=== PATIENT | male | born 1960 | race Caucasian/White ===

== ENCOUNTER → 2016-09-21 | Outpatient (CLI) | payer BC ==
[2016-09-21 09:23] LABS: Basophils % (A) 1 %; CHCM 33.6; Eosinophils # (A) 0.1 k/uL (0-0.7); Eosinophils % (A) 2 %; HCT 46.6 % (39.0-53.0); HDW 2.29; HGB 15.5 gm/dL (13.0-17.5); Luc # (Auto) 0.13; Luc % (Auto) 3; Lymphocytes # (A) 2.2 k/uL (1.0-4.8); Lymphocytes % (A) 42 %; MCH 32.8 pg (25.0-35.0); MCHC 33.3 g/dL (31.0-37.0); MCV 98.6 fL (80.0-100.0); Mean Platelet Volume 8.5; Monocytes # (A) 0.3 k/uL (0-1.0); Monocytes % (A) 6 %; Neutrophils # (A) 2.4 k/uL (1.3-7.7); Neutrophils % (A) 47 %; RBC 4.73 m/uL (4.30-5.90); RDW 11.7 % (11.5-15.5); WBC 5.2 k/uL (3.8-10.6); WBC (Perox) 4.66
[2016-09-21 09:41] LABS: ALT 52 U/L (21-72); AST 36 U/L (17-59); Alkaline Phosphatase 45 U/L (38-126); Anion Gap 12 mmol/L; Blood Urea Nitrogen 17 mg/dL (9-20); Calcium 9.4 mg/dL (8.4-10.2); Carbon Dioxide 23 mmol/L (22-30); Chloride 105 mmol/L (98-107); Cholesterol 136 mg/dL (<200); Creatine Kinase 286 U/L (55-170); Glucose 106 mg/dL (74-99); HDL Cholesterol 46 mg/dL (40-60); Non-African American GFR(MDRD) >60 (>60 ml/min/1.73 sqM); Potassium 4.6 mmol/L (3.5-5.1); Sodium 140 mmol/L (137-145); Total Bilirubin 1.1 mg/dL (0.2-1.3); Total Protein 7.3 g/dL (6.3-8.2); Triglycerides 111 mg/dL (<150)
== END ==
LOC: LABWHC1 09:00
PROVIDERS: ATTEND Family Medicine
DX: E78.5 Hyperlipidemia, unspecified (principal)
CPT/HCPCS: 36415; 80053; 80061; 82550; 84443; 85025

== ENCOUNTER → 2017-09-27 | Outpatient (CLI) | payer BC ==
[2017-09-27 08:03] LABS: Basophils # (A) 0.1 k/uL (0-0.2); Basophils % (A) 1 %; Eosinophils # (A) 0.2 k/uL (0-0.7); Eosinophils % (A) 4 %; HCT 44.7 % (39.0-53.0); HGB 14.8 gm/dL (13.0-17.5); Lymphocytes # (A) 2.3 k/uL (1.0-4.8); Lymphocytes % (A) 35 %; MCH 31.5 pg (25.0-35.0); MCHC 33.2 g/dL (31.0-37.0); MCV 94.9 fL (80.0-100.0); Mean Platelet Volume 7.9; Monocytes # (A) 0.4 k/uL (0-1.0); Monocytes % (A) 6 %; Neutrophils # (A) 3.4 k/uL (1.3-7.7); Neutrophils % (A) 53 %; Platelet Count 217 k/uL (150-450); RBC 4.71 m/uL (4.30-5.90); RDW 11.8 % (11.5-15.5); WBC 6.5 k/uL (3.8-10.6)
[2017-09-27 11:36] LABS: ALT 55 U/L (21-72); AST 33 U/L (17-59); Albumin 3.9 g/dL (3.5-5.0); Alkaline Phosphatase 52 U/L (38-126); Anion Gap 8 mmol/L; Blood Urea Nitrogen 19 mg/dL (9-20); Calcium 9.6 mg/dL (8.4-10.2); Carbon Dioxide 28 mmol/L (22-30); Chloride 105 mmol/L (98-107); Cholesterol 178 mg/dL (<200); Glucose 132 mg/dL (74-99); HDL Cholesterol 35 mg/dL (40-60); LDL Cholesterol,Calculated 106 mg/dL (0-99); Potassium 4.7 mmol/L (3.5-5.1); Sodium 141 mmol/L (137-145); Total Bilirubin 0.9 mg/dL (0.2-1.3); Total Protein 6.7 g/dL (6.3-8.2); Triglycerides 187 mg/dL (<150)
[2017-09-27 12:00] LABS: Prostate Specific Antigen 0.89 ng/mL (0.00-4.00)
[2017-09-27 17:27] LABS: Hepatitis A Antibody IgM Non-Reactive (Non-Reactive); Hepatitis B Core IgM Non-Reactive (Non-Reactive)
== END | disposition home or self-care (01) ==
LOC: LABWHC1 07:01
PROVIDERS: ATTEND Family Medicine
DX: Z00.00 Encounter for general adult medical examination without abnormal findings (principal); Z12.5 Encounter for screening for malignant neoplasm of prostate; Z11.59 Encounter for screening for other viral diseases
CPT/HCPCS: 36415; 80053; 80061; 80074; 84153; 84443; 85025

== ENCOUNTER → 2019-06-14 | Outpatient (CLI) | payer BC ==
[2019-06-14 10:22] LABS: Basophils % (A) 1 %; Eosinophils # (A) 0.1 k/uL (0-0.7); Eosinophils % (A) 3 %; HCT 43.9 % (39.0-53.0); HGB 14.9 gm/dL (13.0-17.5); Lymphocytes # (A) 2.1 k/uL (1.0-4.8); Lymphocytes % (A) 41 %; MCH 32.8 pg (25.0-35.0); MCV 96.6 fL (80.0-100.0); Monocytes # (A) 0.3 k/uL (0-1.0); Monocytes % (A) 6 %; Neutrophils # (A) 2.5 k/uL (1.3-7.7); Neutrophils % (A) 47 %; Platelet Count 189 k/uL (150-450); RBC 4.54 m/uL (4.30-5.90); RDW 11.4 % (11.5-15.5); WBC 5.2 k/uL (3.8-10.6)
[2019-06-14 16:20] LABS: African American GFR (CKD) 114.9 (60.0-200.0); Albumin 4.4 g/dL (3.80-4.90); Albumin/Globulin Ratio 2.44 (1.60-3.17); Anion Gap 7.2 mmol/L (4.00-12.00); BUN/Creat Ratio 23.75 Ratio (12.00-20.00); Calcium 9.3 mg/dL (8.7-10.3); Carbon Dioxide 24.8 mmol/L (21.6-31.8); Chol/HDL Ratio 4.68; Globulin 1.8 g/dL (1.6-3.3); LDL Cholesterol,Calculated 111.8 mg/dL (0.0-131.0); Non-African American GFR(CKD) 99.2 (60.0-200.0); Potassium 4.2 mmol/L (3.5-5.5); Total Bilirubin 1.1 mg/dL (0.2-1.2); Total Protein 6.2 g/dL (6.2-8.2); VLDL Calculation 28.2 mg/dL (5.00-40.00)
== END | disposition home or self-care (01) ==
LOC: LABWHC1 09:02
PROVIDERS: ATTEND Family Medicine
DX: Z00.00 Encounter for general adult medical examination without abnormal findings (principal); Z12.5 Encounter for screening for malignant neoplasm of prostate
CPT/HCPCS: 36415; 80053; 80061; 84153; 84443; 85025

== ENCOUNTER → 2021-08-27 | Outpatient (CLI) | payer BC ==
[2021-08-27 14:40] LABS: Basophils # (A) 0.06 X 10*3/uL (0.00-0.10); Basophils % (A) 0.9 %; Eosinophils # (A) 0.12 X 10*3/uL (0.04-0.35); Eosinophils % (A) 1.7 %; HCT 46.3 % (39.6-50.0); HGB 15.6 g/dL (13.0-17.0); Immature Grans, Automated 0.4 %; Lymphocytes % (A) 36.4 %; MCH 32.1 pg (27.0-32.0); MCHC 33.7 g/dL (32.0-37.0); MCV 95.3 fL (80.0-97.0); Mean Platelet Volume 11.4 fL (9.5-12.2); Monocytes # (A) 0.51 X 10*3/uL (0.20-1.00); Monocytes % (A) 7.4 %; NRBC Per 100 WBC 0 /100 WBCS (0.0-0.0); Neutrophils # (A) 3.65 X 10*3/uL (1.80-7.70); Neutrophils % (A) 53.2 %; Platelet Count 194 X 10*3/uL (140-440); RBC 4.86 X 10*6/uL (4.40-5.60); RDW 11.2 % (11.5-14.5); WBC 6.87 X 10*3/uL (4.50-10.00)
[2021-08-27 15:27] LABS: ALT 78 U/L (10-49); AST 38 U/L (14-35); African American GFR (CKD) 106.4 (60.0-200.0); Albumin 4.6 g/dL (3.8-4.9); Albumin/Globulin Ratio 1.89 (1.60-3.17); Alkaline Phosphatase 47 U/L (41-126); BUN/Creat Ratio 13.39 Ratio (12.00-20.00); Blood Urea Nitrogen 12.2 mg/dL (9.0-27.0); Calcium 9.4 mg/dL (8.7-10.3); Carbon Dioxide 22.9 mmol/L (20.0-27.5); Chloride 101 mmol/L (96-109); Chol/HDL Ratio 4.89 Ratio; Globulin 2.4 g/dL (1.6-3.3); Glucose 173 mg/dL (70-110); LDL Cholesterol,Calculated 126.7 mg/dL (0.0-131.0); Non-African American GFR(CKD) 91.8 (60.0-200.0); Potassium 4.7 mmol/L (3.5-5.5); Sodium 136 mmol/L (135-145)
[2021-08-27 18:17] LABS: Urine Creatinine 91.7 mg/dL (39.0-259.0)
== END | disposition home or self-care (01) ==
LOC: LABWHC1 08:39
PROVIDERS: ATTEND Family Medicine
DX: Z00.00 Encounter for general adult medical examination without abnormal findings (principal); Z12.5 Encounter for screening for malignant neoplasm of prostate; E11.9 Type 2 diabetes mellitus without complications
CPT/HCPCS: 36415; 80053; 80061; 82043; 82570; 84153; 84443; 85025

== ENCOUNTER → 2022-12-07 | Outpatient (CLI) | payer BC ==
[2022-12-07 15:36] LABS: Basophils # (A) 0.06 X 10*3/uL (0.00-0.10); Basophils % (A) 1.1 %; Eosinophils # (A) 0.21 X 10*3/uL (0.04-0.35); HCT 46.6 % (39.6-50.0); HGB 14.8 g/dL (13.0-17.0); Immature Grans, Automated 0.2 %; Lymphocytes # (A) 2.16 X 10*3/uL (0.90-5.00); MCHC 31.8 g/dL (32.0-37.0); MCV 97.7 fL (80.0-97.0); Mean Platelet Volume 11.2 fL (9.5-12.2); Monocytes # (A) 0.41 X 10*3/uL (0.20-1.00); Monocytes % (A) 7.8 %; NRBC Per 100 WBC 0 /100 WBCS (0.0-0.0); Neutrophils # (A) 2.42 X 10*3/uL (1.80-7.70); Neutrophils % (A) 45.9 %; Platelet Count 177 X 10*3/uL (140-440); RBC 4.77 X 10*6/uL (4.40-5.60); RDW 11.9 % (11.5-14.5); WBC 5.27 X 10*3/uL (4.50-10.00)
[2022-12-07 15:52] LABS: ALT 36 U/L (10-49); AST 24 U/L (14-35); African American GFR (CKD) 112.5 (60.0-200.0); Albumin 4.5 g/dL (3.8-4.9); Albumin/Globulin Ratio 2.25 (1.60-3.17); Alkaline Phosphatase 59 U/L (41-126); BUN/Creat Ratio 20.38 Ratio (12.00-20.00); Blood Urea Nitrogen 16.3 mg/dL (9.0-27.0); Calcium 9.4 mg/dL (8.7-10.3); Carbon Dioxide 25.7 mmol/L (20.0-27.5); Chloride 104 mmol/L (96-109); Chol/HDL Ratio 3.87 Ratio; Glucose 150 mg/dL (70-110); LDL Cholesterol,Calculated 109.8 mg/dL (0.0-131.0); Non-African American GFR(CKD) 97.1 (60.0-200.0); Potassium 4.7 mmol/L (3.5-5.5); Sodium 139 mmol/L (135-145); Total Protein 6.5 g/dL (6.2-8.2)
[2022-12-07 19:56] LABS: Microalbumin Creatinine Ratio <30 mg/g Creat (0-30); Urine Creatinine 90.8 mg/dL (39.0-259.0)
== END | disposition home or self-care (01) ==
LOC: LABWHC1 08:37
PROVIDERS: ATTEND Nurse Practitioner Adult Health
DX: Z00.00 Encounter for general adult medical examination without abnormal findings (principal); Z12.5 Encounter for screening for malignant neoplasm of prostate; E11.9 Type 2 diabetes mellitus without complications
CPT/HCPCS: 36415; 80053; 80061; 82043; 82570; 84153; 84439; 84443; 85025

== ENCOUNTER → 2023-11-11 | Outpatient (CLI) | payer BC ==
[2023-11-11 16:21] LABS: Chol/HDL Ratio 3.73 Ratio; LDL Cholesterol,Calculated 106.6 mg/dL (0.0-131.0)
[2023-11-11 16:22] LABS: ALT 58 U/L (10-49); AST 32 U/L (14-35); Albumin 4.7 g/dL (3.8-4.9); Albumin/Globulin Ratio 2.04 Ratio (1.60-3.17); Alkaline Phosphatase 65 U/L (41-126); BUN/Creat Ratio 19.22 Ratio (12.00-20.00); Blood Urea Nitrogen 17.3 mg/dL (9.0-27.0); Calcium 9.7 mg/dL (8.7-10.3); Carbon Dioxide 23.8 mmol/L (21.6-31.8); Chloride 105 mmol/L (96-109); Globulin 2.3 g/dL (1.6-3.3); Glucose 135 mg/dL (70-110); Potassium 5.3 mmol/L (3.5-5.5); Prostate Specific Antigen 0.54 ng/mL (0.000-4.500); Sodium 140 mmol/L (135-145); Total Bilirubin 0.6 mg/dL (0.3-1.2)
[2023-11-11 19:09] LABS: Basophils # (A) 0.05 X 10*3/uL (0.00-0.10); Basophils % (A) 0.9 %; Eosinophils # (A) 0.09 X 10*3/uL (0.04-0.35); Eosinophils % (A) 1.7 %; HCT 48.5 % (39.6-50.0); HGB 15.4 g/dL (13.0-17.0); Lymphocytes # (A) 2.17 X 10*3/uL (0.90-5.00); MCHC 31.8 g/dL (32.0-37.0); MCV 100.6 FL (80.0-97.0); Mean Platelet Volume 11.4 FL (9.5-12.2); Monocytes % (A) 7.6 %; NRBC Per 100 WBC 0 X 10*3/uL (0.00-0.01); Neutrophils # (A) 2.57 X 10*3/uL (1.80-7.70); Neutrophils % (A) 48.6 %; Platelet Count 194 X 10*3/uL (140-440); RBC 4.82 X 10*6/uL (4.40-5.60); RDW 11.8 % (11.5-14.5); WBC 5.29 X 10*3/uL (4.50-10.00)
== END | disposition home or self-care (01) ==
LOC: LABWHC1 07:55
PROVIDERS: ATTEND Family Medicine
DX: Z00.00 Encounter for general adult medical examination without abnormal findings (principal); Z12.5 Encounter for screening for malignant neoplasm of prostate
CPT/HCPCS: 36415; 80053; 80061; 84153; 84439; 84443; 85025

== ENCOUNTER 2024-03-17 02:16 | Emergency (ER) | payer BC ==
--- NOTE | 2024-03-17 02:45 | ED ---
Arrhythmia/Palpitations HPI - General Chief Complaint: Arrhythmia/Palpitations Stated Complaint: Heart Palpitations Time Seen by Provider: 03/17/24 02:29 Source: patient, RN notes reviewed Mode of arrival: ambulatory Limitations: no limitations - History of Present Illness Initial Comments: This is a 63-year-old male who presents to the emergency department for palpitations. This has been intermittent over the last couple of days, however over the last 4 to 5 hours it has been more prominent. These episodes do not occur at any particular time of day or follow any kind of pattern. He feels like his heart is having an irregular rhythm or skipping a beat. He does not have any chest pain or shortness of breath associated with this. Prior to the last few days he has not experienced anything like this. Denies any history of cardiac problems. MD Complaint: "skipped beats", palpitations - Related Data Allergies Allergy/AdvReac Type Severity Reaction Status Date / Time No Known Allergies Allergy Verified 03/17/24 02:22 Review of Systems ROS Statement: Those systems with pertinent positive or pertinent negative responses have been documented in the HPI. ROS Other: All systems not noted in ROS Statement are negative. Past Medical History Past Medical History: Diabetes Mellitus, Hypertension History of Any Multi-Drug Resistant Organisms: None Reported Past Surgical History: No Surgical Hx Reported Past Psychological History: No Psychological Hx Reported Smoking Status: Never smoker Past Alcohol Use History: Occasional Past Drug Use History: None Reported General Exam Limitations: no limitations General appearance: alert, in no apparent distress Head exam: Present: atraumatic, normocephalic, normal inspection Respiratory exam: Present: normal lung sounds bilaterally. Absent: respiratory distress, wheezes, rales, rhonchi, stridor Cardiovascular Exam: Present: regular rate, normal rhythm, normal heart sounds. Absent: systolic murmur, diastolic murmur, rubs, gallop, clicks Neurological exam: Present: alert, oriented X3, CN II-XII intact Psychiatric exam: Present: normal affect, normal mood Skin exam: Present: warm, dry, intact, normal color. Absent: rash Course Vital Signs 03/17/24 03/17/24 02:19 07:33 Temperature 98 F 98.5 F Pulse Rate 91 71 Respiratory 18 16 Rate Blood Pressure 147/93 125/87 O2 Sat by Pulse 98 98 Oximetry Medical Decision Making - Medical Decision Making This is a 63-year-old male who presents to the emergency department for palpit ations. Was pt. sent in by a medical professional or institution? @ -No Did you speak to anyone other than the patient for history? @ -No Did you review nursing and triage notes? @ -Yes, and I agree, it is accurate with regards to the patient's symptoms. Were old charts reviewed? @ -No Differential Diagnosis? @ -Differential Palpitations: Ventricular arrhythmias, atrial arrhythmias, myocardial infarction, anemia, thyrotoxicosis, electrolyte imbalance, hypokalemia, pulmonary embolism, pulmonary disease, drugs, alcohol, anxiety, stress.... This is not meant to be an all-inclusive list. EKG interpreted by me (3pts min.)? @ -EKG interpreted by me demonstrating the following: Sinus rhythm. Ventricular rate 80 bpm, OR interval 220 ms, QRS duration 96 ms, QTc 387 ms. X-rays interpreted by me (1pt min.)? @ -Pending CT interpreted by me (1pt min.)? @ -Not obtained U/S interpreted by me (1pt. min.)? @ -Not obtained What testing was considered but not performed? (CT, X-rays, U/S, labs)? Why? @ -None What meds were considered but not given? Why? @ -None Did you discuss the management of the patient with other professionals? @ -No Did you reconcile home meds? @ -No Was smoking cessation discussed for >3mins.? @ -No Was critical care preformed (if so, how long)? @ -No Were there social determinants of health that impacted care today? How? (Homelessness, low income, unemployed, alcoholism, drug addiction, transportation, low edu. Level, literacy, decrease access to med. care, retirement, rehab)? @ -No Was there de-escalation of care discussed even if they declined? (Discuss DNR or withdrawal of care, Hospice)? @ -No What co-morbidities impacted this encounter? (DM, HTN, Smoking, COPD, CAD, Cancer, CVA, Hep., AIDS, mental health diagnosis, sleep apnea, morbid obesity)? @ -DM, HTN Was patient admitted / discharged? @ -Discharged. Lab work demonstrates signs of mild dehydration and was ot herwise unremarkable including a negative troponin and negative D-dimer. Case signed out to ED attending, Dr. Macdonald, pending UA and CXR results. On review the following day, chest x-ray and UA were both negative. Patient was discharged home in stable condition to follow-up with his primary care provider. They can discuss a Holter monitor or further testing if indicated. Undiagnosed new problem with uncertain prognosis? @ -None Drug Therapy requiring intensive monitoring for toxicity (Heparin, Nitro, Insulin, Cardizem)? @ -None Were any procedures done? @ -None Diagnosis/symptom? @ -Palpitations Acute, or Chronic, or Acute on Chronic? @ -Acute Uncomplicated (without systemic symptoms) or Complicated (systemic symptoms)? @ -Uncomplicated Side effects of treatment? @ -None Exacerbation, Progression, or Severe Exacerbation] @ -Not applicable Poses a threat to life or bodily function? @ -Unclear, this will depend on the cause. - Lab Data Result diagrams: 03/17/24 02:45 03/17/24 02:45 Lab Results 03/17/24 03/17/24 03/17/24 Range/Units 02:45 02:45 02:45 WBC 6.7 (3.8-10.6) k/uL RBC 4.65 (4.30-5.90) m/uL Hgb 14.7 (13.0-17.5) gm/dL Hct 45.8 (39.0-53.0) % MCV 98.5 (80.0-100.0) fL MCH 31.7 (25.0-35.0) pg MCHC 32.2 (31.0-37.0) g/dL RDW 11.6 (11.5-15.5) % Plt Count 176 (150-450) k/uL MPV 8.4 Neutrophils % 55 % Lymphocytes % 37 % Monocytes % 5 % Eosinophils % 2 % Basophils % 1 % Neutrophils # 3.7 (1.3-7.7) k/uL Lymphocytes # 2.4 (1.0-4.8) k/uL Monocytes # 0.3 (0-1.0) k/uL Eosinophils # 0.1 (0-0.7) k/uL Basophils # 0.0 (0-0.2) k/uL PT 9.9 L (10.0-12.5) sec INR 0.9 (<1.2) APTT 24.4 (22.0-30.0) sec D-Dimer 0.24 (<0.60) mg/L FEU Sodium 138 (137-145) mmol/L Potassium 4.2 (3.5-5.1) mmol/L Chloride 107 (98-107) mmol/L Carbon Dioxide 25 (22-30) mmol/L Anion Gap 6 mmol/L BUN 24 H (9-20) mg/dL Creatinine 0.98 (0.66-1.25) mg/dL Est GFR (CKD-EPI)AfAm >90 (>60 ml/min/1.73 sqM) Est GFR (CKD-EPI)NonAf 84 (>60 ml/min/1.73 sqM) Glucose 160 H (74-99) mg/dL Calcium 10.0 (8.4-10.2) mg/dL Magnesium 1.9 (1.6-2.3) mg/dL Total Bilirubin 0.7 (0.2-1.3) mg/dL AST 25 (17-59) U/L ALT 31 (4-49) U/L Alkaline Phosphatase 54 (38-126) U/L Troponin I (0.000-0.034) ng/mL Total Protein 6.9 (6.3-8.2) g/dL Albumin 4.4 (3.5-5.0) g/dL TSH 1.390 (0.465-4.680) mIU/L Urine Color Urine Appearance (Clear) Urine pH (5.0-8.0) Ur Specific [place] (1.001-1.035) Urine Protein (Negative) Urine Glucose (UA) (Negative) Urine Ketones (Negative) Urine Blood (Negative) Urine Nitrite (Negative) Urine Bilirubin (Negative) Urine Urobilinogen (<2.0) mg/dL Ur Leukocyte Esterase (Negative) 03/17/24 03/17/24 Range/Units 02:45 04:44 WBC (3.8-10.6) k/uL RBC (4.30-5.90) m/uL Hgb (13.0-17.5) gm/dL Hct (39.0-53.0) % MCV (80.0-100.0) fL MCH (25.0-35.0) pg MCHC (31.0-37.0) g/dL RDW (11.5-15.5) % Plt Count (150-450) k/uL MPV Neutrophils % % Lymphocytes % % Monocytes % % Eosinophils % % Basophils % % Neutrophils # (1.3-7.7) k/uL Lymphocytes # (1.0-4.8) k/uL Monocytes # (0-1.0) k/uL Eosinophils # (0-0.7) k/uL Basophils # (0-0.2) k/uL PT (10.0-12.5) sec INR (<1.2) APTT (22.0-30.0) sec D-Dimer (<0.60) mg/L FEU Sodium (137-145) mmol/L Potassium (3.5-5.1) mmol/L Chloride (98-107) mmol/L Carbon Dioxide (22-30) mmol/L Anion Gap mmol/L BUN (9-20) mg/dL Creatinine (0.66-1.25) mg/dL Est GFR (CKD-EPI)AfAm (>60 ml/min/1.73 sqM) Est GFR (CKD-EPI)NonAf (>60 ml/min/1.73 sqM) Glucose (74-99) mg/dL Calcium (8.4-10.2) mg/dL Magnesium (1.6-2.3) mg/dL Total Bilirubin (0.2-1.3) mg/dL AST (17-59) U/L ALT (4-49) U/L Alkaline Phosphatase (38-126) U/L Troponin I <0.012 (0.000-0.034) ng/mL Total Protein (6.3-8.2) g/dL Albumin (3.5-5.0) g/dL TSH (0.465-4.680) mIU/L Urine Color Colorless Urine Appearance Clear (Clear) Urine pH 6.5 (5.0-8.0) Ur Specific [place] 1.022 (1.001-1.035) Urine Protein Negative (Negative) Urine Glucose (UA) Negative (Negative) Urine Ketones Negative (Negative) Urine Blood Negative (Negative) Urine Nitrite Negative (Negative) Urine Bilirubin Negative (Negative) Urine Urobilinogen <2.0 (<2.0) mg/dL Ur Leukocyte Esterase Negative (Negative) - Radiology Data Radiology results: report reviewed, image reviewed Disposition Clinical Impression: Palpitations Disposition: HOME SELF-CARE Instructions (If sedation given, give patient instructions): Heart Palpitations (ED) Is patient prescribed a controlled substance at d/c from ED?: No Referrals: Al Murray MD [Primary Care Provider] - 1-2 days
[2024-03-17 03:01] LABS: Basophils % (A) 1 %; Eosinophils # (A) 0.1 k/uL (0-0.7); Eosinophils % (A) 2 %; HCT 45.8 % (39.0-53.0); HGB 14.7 gm/dL (13.0-17.5); Lymphocytes # (A) 2.4 k/uL (1.0-4.8); Lymphocytes % (A) 37 %; MCH 31.7 pg (25.0-35.0); MCHC 32.2 g/dL (31.0-37.0); MCV 98.5 fL (80.0-100.0); Mean Platelet Volume 8.4; Monocytes # (A) 0.3 k/uL (0-1.0); Monocytes % (A) 5 %; Neutrophils # (A) 3.7 k/uL (1.3-7.7); Neutrophils % (A) 55 %; Platelet Count 176 k/uL (150-450); RBC 4.65 m/uL (4.30-5.90); RDW 11.6 % (11.5-15.5); WBC 6.7 k/uL (3.8-10.6)
[2024-03-17 03:10] LABS: ALT 31 U/L (4-49); AST 25 U/L (17-59); African American GFR (CKD) >90 (>60 ml/min/1.73 sqM); Albumin 4.4 g/dL (3.5-5.0); Alkaline Phosphatase 54 U/L (38-126); Anion Gap 6 mmol/L; Blood Urea Nitrogen 24 mg/dL (9-20); Carbon Dioxide 25 mmol/L (22-30); Chloride 107 mmol/L (98-107); Glucose 160 mg/dL (74-99); Magnesium 1.9 mg/dL (1.6-2.3); Non-African American GFR(CKD) 84 (>60 ml/min/1.73 sqM); Potassium 4.2 mmol/L (3.5-5.1); Sodium 138 mmol/L (137-145); Total Bilirubin 0.7 mg/dL (0.2-1.3); Total Protein 6.9 g/dL (6.3-8.2)
[2024-03-17 03:40] LABS: INR 0.9 (<1.2); Partial Thromboplastin Time 24.4 sec (22.0-30.0); Prothrombin Time 9.9 sec (10.0-12.5)
[2024-03-17] MEDS: SODIUM CHLORIDE 0.9% 1,000 ML IV STA (03:51)
--- NOTE | 2024-03-17 04:58 | XR ---
EXAMINATION TYPE: XR chest 2V DATE OF EXAM: 03/17/2024 COMPARISON: NONE HISTORY: Dysrhythmia. TECHNIQUE: Frontal and lateral views of the chest are obtained. FINDINGS: Overlying EKG leads are seen. There is no suspicious focal air space opacity, pleural effus ion, or pneumothorax seen. The cardiac silhouette size is within normal limits. The osseous struct ures are intact. IMPRESSION: No acute cardiopulmonary process.
[2024-03-17 06:19] LABS: Appearance,Urine Clear (Clear); Bilirubin,Urine Negative (Negative); Blood,Urine Negative (Negative); Color,Urine Colorless; Glucose,Urine (UA) Negative (Negative); Ketones,Urine Negative (Negative); Leukocyte Esterase,Urine Negative (Negative); Nitrite,Urine Negative (Negative); PH, Urine 6.5 (5.0-8.0); Protein,Urine Negative (Negative); Specific Gravity,Urine 1.022 (1.001-1.035); Urobilinogen,Urine <2.0 mg/dL (<2.0)
[2024-03-17 07:34] VITALS: BP 125/87; PULSE 71; RESP 16; TEMP 98.5
== END 2024-03-17 07:34 | disposition home or self-care (01) ==
LOC: EC 02:16
CPT/HCPCS: 36415; 71046; 80053; 81003; 83735; 84443; 84484; 85025; 85379; 85610; 85730; 93005; 96360; 99285

== ENCOUNTER → 2025-01-02 | Outpatient (CLI) | payer BC ==
[2025-01-02 15:07] LABS: Basophils # (A) 0.06 X 10*3/uL (0.00-0.10); Basophils % (A) 0.9 %; Eosinophils # (A) 0.07 X 10*3/uL (0.04-0.35); Eosinophils % (A) 1.1 %; HCT 46.7 % (39.6-50.0); HGB 15.5 g/dL (13.0-17.0); Lymphocytes # (A) 2.43 X 10*3/uL (0.90-5.00); Lymphocytes % (A) 37.1 %; MCH 32.5 pg (27.0-32.0); MCHC 33.2 g/dL (32.0-37.0); MCV 97.9 FL (80.0-97.0); Monocytes # (A) 0.48 X 10*3/uL (0.20-1.00); Monocytes % (A) 7.3 %; NRBC Per 100 WBC 0 X 10*3/uL (0.00-0.01); Neutrophils # (A) 3.49 X 10*3/uL (1.80-7.70); Neutrophils % (A) 53.3 %; Platelet Count 190 X 10*3/uL (140-440); RBC 4.77 X 10*6/uL (4.40-5.60); RDW 11.6 % (11.5-14.5); WBC 6.55 X 10*3/uL (4.50-10.00)
[2025-01-02 15:46] LABS: ALT 51 U/L (10-49); AST 29 U/L (14-35); Albumin 4.5 g/dL (3.8-4.9); Albumin/Globulin Ratio 1.73 Ratio (1.60-3.17); Alkaline Phosphatase 48 U/L (41-126); BUN/Creat Ratio 19.12 Ratio (12.00-20.00); Blood Urea Nitrogen 15.3 mg/dL (9.0-27.0); Calcium 9.5 mg/dL (8.7-10.3); Carbon Dioxide 23.7 mmol/L (21.6-31.8); Chloride 105 mmol/L (96-109); Globulin 2.6 g/dL (1.6-3.3); Glucose 137 mg/dL (70-110); LDL Cholesterol,Calculated 111.9 mg/dL (0.0-131.0); Potassium 4.9 mmol/L (3.5-5.5); Prostate Specific Antigen 0.85 ng/mL (0.000-4.500); Sodium 139 mmol/L (135-145); T4, Free (Free Thyroxine) 1.31 ng/dL (0.80-1.80); Total Bilirubin 0.9 mg/dL (0.3-1.2); Total Protein 7.1 g/dL (6.2-8.2)
== END | disposition home or self-care (01) ==
LOC: LABWHC1 11:02
PROVIDERS: ATTEND Nurse Practitioner Adult Health
DX: Z12.5 Encounter for screening for malignant neoplasm of prostate (principal); E11.9 Type 2 diabetes mellitus without complications
CPT/HCPCS: 36415; 80053; 80061; 84153; 84439; 84443; 85025